=== PATIENT | female | born 1940 | race Caucasian/White ===

== ENCOUNTER → 2016-11-06 | Outpatient (CLI) | payer MEDICARE, OTHER | LOC: MW.CHNEURO 08:00 | PROVIDERS: ATTEND Psychiatry & Neurology Neuromuscular Medicine | DX: G51.0 Bell's palsy (principal) | CPT/HCPCS: G0463 ==

== ENCOUNTER 2019-02-04 19:12 | Emergency (ER) | payer MEDICARE, OTHER ==
[2019-02-04 19:31] VITALS: BP 135/97
[2019-02-04] MEDS ORDERED: Ketorolac 60 MG/2 ML SDV IM ONE (19:37)
--- NOTE | 2019-02-04 19:44 | EDM.PDOC ---
ED HPI GENERAL MEDICAL PROBLEM - General Chief Complaint: Lower Extremity Injury/Pain Stated Complaint: PAIN IN RT KNEE Time Seen by Provider: 02/04/19 19:30 Source of Information: Reports: Patient History Limitations: Reports: No Limitations - History of Present Illness INITIAL COMMENTS - FREE TEXT/NARRATIVE: HISTORY AND PHYSICAL: History of present illness: Presents reporting right knee pain. The patient states that she has a history of rheumatoid arthritis. She had her left knee replaced a couple years ago. She has had intermittent right knee pain for a long time. Today, after walking at the grocery store, the pain became worse. She states she just came here to get a pain pill because she knew she would not be able to sleep tonight. She does not recall injuring her knee in any way, no fever or constitutional symptoms. Review of systems: As per history of present illness and below otherwise all systems reviewed and negative. Past medical history: As per history of present illness and as reviewed below otherwise noncontributory. Surgical history: As per history of present illness and as reviewed below otherwise noncontributory. Social history: No reported history of drug or alcohol abuse. Family history: As per history of present illness and as reviewed below otherwise noncontributory. Physical exam: HEENT: Atraumatic, normocephalic, pupils reactive, negative for conjunctival pallor or scleral icterus, mucous membranes moist, throat clear, neck supple, nontender, trachea midline. Lungs: Clear to auscultation, breath sounds equal bilaterally, chest nontender. Heart: S1S2, regular, negative for clicks, rubs, or JVD. Abdomen: Soft, nondistended, nontender. Negative for masses or hepatosplenomegaly. Negative for costovertebral tenderness. Pelvis: Stable nontender. Genitourinary: Deferred. Rectal: Deferred. Extremities: Atraumatic, negative for cords or calf pain. Neurovascular unremarkable. Neuro: Awake, alert, oriented. Cranial nerves II through XII unremarkable. Cerebellum unremarkable. Motor and sensory unremarkable throughout. Exam nonfocal. Diagnostics: [] Therapeutics: [] Impression: [] Plan: [] Definitive disposition and diagnosis as appropriate pending reevaluation and review of above. 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 right knee Pain Score (Numeric/FACES): 8 - Related Data Allergies Allergy/AdvReac Type Severity Reaction Status Date / Time No Known Allergies Allergy Verified 02/04/19 19:24 Home Meds: Home Meds Multivitamin [Multivitamins] 1 tab PO DAILY 08/21/14 [History] Ranitidine [Zantac] 150 mg PO DAILY PRN 08/21/14 [History] Sertraline HCl [Zoloft] 100 mg PO DAILY 08/21/14 [History] Past Medical History HEENT History: Reports: Cataract Other HEENT History: uses corrective glasses Cardiovascular History: Reports: Hypertension Respiratory History: Reports: None Gastrointestinal History: Reports: None Genitourinary History: Reports: None 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: Musculoskeletal History: Reports: RA Neurological History: Reports: None Psychiatric History: Reports: Anxiety Endocrine/Metabolic History: Reports: None Hematologic History: Reports: None Immunologic History: Reports: None Oncologic (Cancer) History: Reports: None Dermatologic History: Reports: None - Infectious Disease History Infectious Disease History: Reports: None - Past Surgical History Head Surgeries/Procedures: Reports: None HEENT Surgical History: Reports: Cataract Surgery Female Surgical History: Reports: Section, Hysterectomy, Salpingo- Oophorectomy Musculoskeletal Surgical History: Reports: Knee Replacement Social & Family History - Family History Family Medical History: Noncontributory - Tobacco Use Smoking Status *Q: Never Smoker - Caffeine Use Caffeine Use: Reports: Coffee - Recreational Drug Use Recreational Drug Use: No Review of Systems - Review of Systems Review Of Systems: ROS reveals no pertinent complaints other than HPI. ED EXAM, GENERAL - Physical Exam Exam: See Below Exam Limited By: No Limitations General Appearance: Alert, No Apparent Distress Ears: Normal External Exam Nose: Normal Inspection Throat/Mouth: Normal Inspection Head: Atraumatic, Normocephalic Neck: Normal Inspection Respiratory/Chest: No Respiratory Distress Cardiovascular: Normal Peripheral Pulses, Regular Rate, Rhythm, No Murmur Extremities: Normal Inspection, Normal Range of Motion, Other (Right knee without erythema, ecchymosis, deformity, crepitus, swelling or laxity). No: Joint Swelling, Limited Range of Motion, Increased Warmth, Redness Neurological: Alert, Oriented Psychiatric: Normal Affect, Normal Mood Skin Exam: Warm, Dry, Intact, Normal Color, No Rash Lymphatic: No Adenopathy Course - Vital Signs Last Recorded V/S: Last Vital Signs Temp 36.2 C 08/06/19 19:26 Pulse 72 02/04/19 19:26 Resp 18 02/04/19 19:26 BP 135/97 H 02/04/19 19:26 Pulse Ox 98 02/04/19 19:26 - Orders/Labs/Meds Meds: Medications Discontinued Medications Generic Name Dose Route Start Last Admin Trade Name Raine PRN Reason Stop Dose Admin Ketorolac Tromethamine 60 mg 02/04/19 19:37 Toradol IM 02/04/19 19:38 ONETIME ONE Departure - Departure Time of Disposition: 19:42 Disposition: Home, Self-Care 01 Condition: Good Clinical Impression: Arthritis of knee - Discharge Information *PRESCRIPTION DRUG MONITORING PROGRAM REVIEWED*: Not Applicable *COPY OF PRESCRIPTION DRUG MONITORING REPORT IN PATIENT JOSE: Not Applicable Referrals: Bharti Yuan NP [Primary Care Provider] - Additional Instructions: The following information is given to patients seen in the emergency department who are being discharged to home. This information is to outline your options for follow-up care. We provide all patients seen in our emergency department with a follow-up referral. The need for follow-up, as well as the timing and circumstances, are variable depending upon the specifics of your emergency department visit. If you don't have a primary care physician on staff, we will provide you with a referral. We always advise you to contact your personal physician following an emergency department visit to inform them of the circumstance of the visit and for follow-up with them and/or the need for any referrals to a consulting specialist. The emergency department will also refer you to a specialist when appropriate. This referral assures that you have the opportunity for follow-up care with a specialist. All of these measure are taken in an effort to provide you with optimal care, which includes your follow-up. Under all circumstances we always encourage you to contact your private physician who remains a resource for coordinating your care. When calling for follow-up care, please make the office aware that this follow-up is from your recent emergency room visit. If for any reason you are refused follow-up, please contact the [facility] Emergency Department at and asked to speak to the emergency department charge nurse. 1. Tylenol 1 g 3 times a day as needed 2. Follow-up with primary provider in the clinic
[2019-02-04 21:32] VITALS: PULSE 83
== END 2019-02-04 20:10 | disposition home or self-care (01) ==
LOC: MW.ED 19:12
DX: M17.11 Unilateral primary osteoarthritis, right knee (principal); I10 Essential (primary) hypertension; F41.9 Anxiety disorder, unspecified; Z90.710 Acquired absence of both cervix and uterus; Z90.721 Acquired absence of ovaries, unilateral; Z79.899 Other long term (current) drug therapy
CPT/HCPCS: 96372; 99283; J1885; 99282

== ENCOUNTER 2020-04-04 01:55 | Emergency (ER) | payer MEDICARE, OTHER ==
[2020-04-04 02:13] VITALS: BP 170/82; PULSE 75
[2020-04-04] MEDS ORDERED: Lidocaine 1% with EPINEPHrine 1:100,000 20 ML MDV ONE (04:03)
[2020-04-04] MEDS ORDERED: Bacitracin Oint 1 GM U/D Packet TOP ONE (04:34)
--- NOTE | 2020-04-04 04:36 | EDM.PDOC ---
ED HPI GENERAL MEDICAL PROBLEM - General Chief Complaint: Laceration Stated Complaint: FELL AND HIT HEAD Time Seen by Provider: 04/04/20 02:36 - History of Present Illness INITIAL COMMENTS - FREE TEXT/NARRATIVE: CHIEF COMPLAINT(S): Head laceration HISTORY OF PRESENT ILLNESS: This is a 79-year-old woman without any significant past medical history who comes to the emergency department with a chief complaint of head laceration. The patient states that she was having a nightmare and her son heard her fall off the bed and hit her head. She denies any loss of consciousness. She denies any nausea or vomiting. She denies any numbness tingling or weakness. She denies any use of oral anticoagulation. She denies any other injury. She denies any chest pain, shortness of breath, abdominal pain. She states that she did hit her head on the right side and has a cut to her head. She states that her tetanus is up-to-date. She denies any significant bleeding. REVIEW OF SYSTEMS: Constitutional: Denies fever, chills. Eyes: Denies eye pain Ears, Nose, Mouth, & Throat: Denies earache Cardiovascular: Denies chest pain Respiratory: Denies shortness of breath Gastrointestinal: Denies Nausea, vomiting, diarrhea, hematochezia. Genitourinary: Denies hematuria Skin: Positive for laceration to right of head Neurological: Denies blurred vision Psychiatric: Denies depression PAST MEDICAL HISTORY: As per history of present illness and as reviewed below otherwise noncontributory. SURGICAL HISTORY: As per history of present illness and as reviewed below otherwise noncontributory. LMP: Menopausal SOCIAL HISTORY: As per history of present illness and as reviewed below otherwise noncontributory. FAMILY HISTORY: As per history of present illness and as reviewed below otherwise noncontributory. EXAMINATION OF ORGAN SYSTEMS/BODY AREAS: Constitutional: Blood pressure is 170/82, heart rate 75, respiratory 18 with an oxygen saturation 98% on room air. Temperature 36.4 General: Overall well-appearing woman who is in no acute distress Psychiatric: Appropriate mood and affect. Eyes: No scleral icterus or conjunctival erythema pupils equal round reactive to light. Extraocular movements intact. No nystagmus is noted. ENMT: Moist mucous membranes. No pharyngeal erythema Cardiovascular: Regular, rate, and rhythym. No gallops, murmurs, or rubs. Bilateral upper extremity pulses symmetric and intact. No peripheral edema. No JVD. Respiratory: Lungs clear to auscultation bilaterally. No wheezes, rales, or rhonchi. Gastrointestinal: Soft, non-tender, non-distended. Normoactive bowel sounds Genitourinary: No suprapubic tenderness Musculoskeletal: Normal range of motion. Skin: There is a 2.5 cm laceration to the patient's right eyebrow. Neurological: AOx4. CN grossly intact. Stregth 5/5 in bilateral upper and lower extremity. Sensation is intact bilaterally in upper and lower extremity. Gait appears normal. MEDICAL DECISION MAKING AND COURSE IN THE ED WITH INTERPRETATION/REVIEW OF DIAGNOSTIC STUDIES: This is a 79-year-old man without any significant past medical history who comes to the emergency department with accidental fall with a head laceration without any loss of consciousness who appears well and other than mild hypertension has normal vital signs. At this time I do not believe any labs or imaging are indicated. Patient is up-to-date on tetanus therefore it will not be administered. We will suture repair of the patient's head. Laceration Repair Note Repair of the 2.5 cm right eyebrow wound was done by myself. Wound was irrigated well with saline. Local anesthesia with lidocaine was performed. No foreign bodies were noted. The wound was repaired with 6 6-0 directed nylon sutures. Wound edges approximated well. Bacitracin ointment and a sterile dressing were applied. DISPOSITION: The patient was discharged home in stable condition. The patient will follow up with primary care physician as needed and the emergency department in 5 7 days for suture removal CONDITION: Good PROCEDURES: Laceration repair FINAL IMPRESSION(S)/DIAGNOSES: 1. Acute simple laceration status post suture repair 2. Hypertension Abdiel Alvarado M.D. 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: Musculoskeletal History: Reports: RA Neurological History: Reports: None Psychiatric History: Reports: Anxiety Endocrine/Metabolic History: Reports: None Hematologic History: Reports: None Immunologic History: Reports: None Oncologic (Cancer) History: Reports: None Dermatologic History: Reports: None - Infectious Disease History Infectious Disease History: Reports: None - Past Surgical History Head Surgeries/Procedures: Reports: None HEENT Surgical History: Reports: Cataract Surgery Female Surgical History: Reports: Section, Hysterectomy, Salpingo- Oophorectomy Musculoskeletal Surgical History: Reports: Knee Replacement Social & Family History - Family History Family Medical History: Noncontributory - Tobacco Use Smoking Status *Q: Never Smoker Second Hand Smoke Exposure: No - Caffeine Use Caffeine Use: Reports: None - Recreational Drug Use Recreational Drug Use: No ED ROS GENERAL - Review of Systems Review Of Systems: See Below ED EXAM, SKIN/RASH Exam: See Below Course - Vital Signs Last Recorded V/S: Last Vital Signs Temp 36.4 C 04/04/20 02:02 Pulse 75 04/04/20 02:02 Resp 18 04/04/20 02:02 BP 170/82 H 04/04/20 02:02 Pulse Ox 98 04/04/20 02:02 - Orders/Labs/Meds Meds: Medications Discontinued Medications Generic Name Dose Route Start Last Admin Trade Name Raine PRN Reason Stop Dose Admin Bacitracin 1 dose 04/04/20 04:34 04/04/20 04:45 Bacitracin Oint 1 Gm TOP 04/04/20 04:35 1 dose ONETIME ONE Administration Lidocaine/Epinephrine Confirm 04/04/20 04:03 04/04/20 04:44 Xylocaine 1% With Epinephrine 1:100,000 Administered 04/04/20 04:04 Not Given Dose 20 ml .ROUTE .STK-MED ONE Lidocaine/Epinephrine 20 ml 04/04/20 04:40 04/04/20 04:45 Xylocaine 1% With Epinephrine 1:100,000 INJECT 04/04/20 04:41 20 ml ONETIME ONE Administration Departure - Departure Time of Disposition: 04:35 Disposition: Home, Self-Care 01 Condition: Fair Clinical Impression: Laceration - Discharge Information *PRESCRIPTION DRUG MONITORING PROGRAM REVIEWED*: No *COPY OF PRESCRIPTION DRUG MONITORING REPORT IN PATIENT JOSE: No Instructions: Laceration Care, Adult, [id number], Sutures, [place], or Adhesive Wound Closure, [id number] Referrals: Diego Bains MD [Primary Care Provider] - Forms: ED Department Discharge Additional Instructions: The patient is informed of any results of their evaluation and diagnostic workup and all questions are answered. They are given discharge instructions and return precautions. The patient is stable for discharge. The patient states they understand and agree with the plan and that they will return if their symptoms get worse or if they have any new concerns. The following information is given to patients seen in the emergency department who are being discharged to home. This information is to outline your options for follow-up care. We provide all patients seen in our emergency department with a follow-up referral. The need for follow-up, as well as the timing and circumstances, are variable depending upon the specifics of your emergency department visit. If you don't have a primary care physician on staff, we will provide you with a referral. We always advise you to contact your personal physician following an emergency department visit to inform them of the circumstance of the visit and for follow-up with them and/or the need for any referrals to a consulting specialist. The emergency department will also refer you to a specialist when appropriate. This referral assures that you have the opportunity for follow-up care with a specialist. All of these measure are taken in an effort to provide you with optimal care, which includes your follow-up. Under all circumstances we always encourage you to contact your private physician who remains a resource for coordinating your care. When calling for follow-up care, please make the office aware that this follow-up is from your recent emergency room visit. If for any reason you are refused follow-up, please contact the [facility] Emergency Department at and asked to speak to the emergency department charge nurse. [facility] [address] [place] [id number] [facility] [address] [place] [id number] PLEASE RETURN TO ED IN 5-7 days for removal of your sutures Sepsis Event Note (ED) - Evaluation Sepsis Screening Result: No Definite Risk - Focused Exam Vital Signs: Vital Signs Temp Pulse Resp BP Pulse Ox 04/04/20 02:02 36.4 C 75 18 170/82 H 98
[2020-04-04] MEDS ORDERED: Lidocaine 1% with EPINEPHrine 1:100,000 20 ML MDV INJECT ONE (04:40)
== END 2020-04-04 04:50 | disposition home or self-care (01) ==
LOC: MW.ED 01:55
DX: S01.111A Laceration without foreign body of right eyelid and periocular area, initial encounter (principal); I10 Essential (primary) hypertension; F41.9 Anxiety disorder, unspecified; Z90.710 Acquired absence of both cervix and uterus; Z79.899 Other long term (current) drug therapy; W06.XXXA Fall from bed, initial encounter
CPT/HCPCS: 12011; 99282; 99282-25

== ENCOUNTER 2020-04-12 12:23 | Emergency (ER) | payer MEDICARE, OTHER ==
[2020-04-12 12:38] VITALS: BP 135/74; PULSE 80
== END 2020-04-12 12:37 | disposition left against medical advice (07) ==
LOC: MW.ED 12:23
DX: S01.111D Laceration without foreign body of right eyelid and periocular area, subsequent encounter (principal); W06.XXXD Fall from bed, subsequent encounter
CPT/HCPCS: 99281

== ENCOUNTER 2025-03-25 22:49 | Emergency (ER) | payer MEDICARE, OTHER ==
[2025-03-25 23:27] LABS: BASOPHILS ABSOLUTE AUTO 0.02 K/uL (0.00-0.20); BASOPHILS PERCENT AUTO 0.2 % (0.0-1.0); EOSINOPHILS ABSOLUTE AUTO 0.10 K/uL (0.00-0.45); EOSINOPHILS PERCENT AUTO 1.2 % (0.0-6.0); IMMATURE GRAN ABSOLUTE AUTO 0.04 K/uL (0.00-0.05); IMMATURE GRAN PERCENT AUTO 0.5 % (0.0-0.4); LYMPHOCYTES ABSOLUTE AUTO 1.00 K/uL (1.00-4.80); LYMPHOCYTES PERCENT AUTO 12.3 % (24.0-44.0); MEAN PLATELET VOLUME 9.9 fL (9.4-12.3); MONOCYTES ABSOLUTE AUTO 0.58 K/uL (0.00-0.80); MONOCYTES PERCENT AUTO 7.1 % (0.0-8.0); NEUTROPHILS ABSOLUTE AUTO 6.42 K/uL (1.80-7.70); NEUTROPHILS PERCENT AUTO 78.7 % (41.0-71.0); NRBC ABSOLUTE 0.00 K/uL (0.00-0.02); NRBC PERCENT 0.0 /100WBC (0.0-0.2); PLATELET COUNT,PLT 217 K/uL (150-400); RED BLOOD CELL COUNT 3.86 M/uL (4.10-5.30); WHITE BLOOD CELL COUNT,WBC 8.16 K/uL (3.9-11.3)
[2025-03-25 23:48] LABS: BLOOD UREA NITROGEN,BUN 24.0 mg/dL (7.0-18.0); CARBON DIOXIDE,CO2 28.0 mmol/L (21.0-32.0); CHLORIDE,CL 105.0 mmol/L (98-107); CREATININE 1.0 mg/dL (0.6-1.0); EST CRCL DRUG DOSING (CG) 31.94 mL/min; GLUCOSE RANDOM 106.0 mg/dL (74-106); INR 1.05 (0.86-1.11); POTASSIUM,K 4.0 mmol/L (3.5-5.1); SODIUM,NA 137.0 mmol/L (136-145)
[2025-03-25 23:53] LABS: ESTIMATED GFR 55.0 mL/min (>60)
[2025-03-26 01:52] VITALS: BP 177/68; PULSE 100
== END 2025-03-26 02:14 ==
LOC: MW.ED 22:49
DX: S72.002A Fracture of unspecified part of neck of left femur, initial encounter for closed fracture (principal); I10 Essential (primary) hypertension; Z79.899 Other long term (current) drug therapy; W18.30XA Fall on same level, unspecified, initial encounter
CPT/HCPCS: 36415; 70450; 73502; 80048; 85025; 85610; 86850; 86900; 86901; 96374; 96376; 99285; J7030; 99284; J1171